=== PATIENT | female | born 1955 | race Caucasian/White ===

== ENCOUNTER 2016-07-12 22:49 | Observation (INO) | payer OTHER ==
--- NOTE | ~2016-07-12 | OP ---
Record Of Operation [facility] [address] [place]. [address] NAME: KATE GASTON : 57 STATUS : ADM Belkis PAT#: [id number] AGE: 61 ADM/REG DATE : 07/12/16 MR#: [id number] REPORT SERV DATE: 07/13/16 DICTATED BY: COBY BENOIT DATE: 07/13/16 REPORT STATUS : Draft TRANSCRIBED BY: MODL DATE: 07/13/16 DATE OF PROCEDURE: 07/12/2016 PREOPERATIVE DIAGNOSIS: Right hip dislocation. POSTOPERATIVE DIAGNOSIS: Right hip dislocation. PROCEDURES: Right closed reduction under anesthesia after total hip arthroplasty. COMPLICATIONS: None. SPECIMENS: None. FINDINGS: Located to hip by x-ray. CONDITION UPON LEAVING OR: Stable to recovery room with good distal pulses and a reduced hip, clinically equal leg lengths. INDICATIONS FOR PROCEDURE: Briefly, this is a pleasant, 61-year-old female, who is 3 months status post right total hip arthroplasty, suffered a same-level fall in her home. She was brought to the [facility] Emergency Room and then transferred to the [facility] Emergency Room. A failed closed reduction in the emergency room resulted in a consult to me. I had seen and evaluated her in the preoperative holding area of [facility] approximately 11 p.m. She was given the risks and benefits of closed reduction under anesthesia including not limited to , myocardial infarction, pulmonary embolism, stroke, deep venous thrombosis, damage to nerves, damage to vessels, damage to other soft tissues, painful scar, unsightly scar, hardware wear, hardware breakage, periprosthetic fracture, periprosthetic infection, possible further dislocation, possible need for further open procedure. I did discuss with her that tonight was a closed reduction attempt only and should there be a failure in this reduction attempts then it would require hospitalization, preoperative planning, and open procedure in the days to follow. They verbalized understanding of these risks and wished to proceed to the operating room. PROCEDURE IN DETAIL: After the patient was identified in the perioperative holding area, correct side and site identified and marked by me. She was taken to the operative suite, placed under general anesthesia. She was supine. We had transferred her to her floor bed with the radiographic plate beneath this and then a closed reduction maneuver was performed with her hip in internal rotation and traction. There was a palpable satisfying relocation clunk. Her leg lengths were then clinically equal, and her clinical range of motion was without impingement and had full range of motion. The x-ray machine was brought in, and AP pelvis x-ray was taken that confirmed a located right hip with normal radiographic lucency of the poly-liner. Satisfied that she was reduced, she was placed in abduction pillow and transferred to the PACU for recovery. She will be placed on the floor, and she will be followed up by Dr. Cruz, in the a.m. Record Of Operation [address] [address] NAME: KATE GASTON : 57 STATUS : ADM Belkis PAT#: [id number] AGE: 61 ADM/REG DATE : 07/12/16 MR#: [id number] REPORT SERV DATE: 07/13/16 DICTATED BY: COBY BENOIT DATE: 07/13/16 REPORT STATUS : Draft TRANSCRIBED BY: AVA DATE: 07/13/16 ARJUN/AVA Coby Benoit M.D. / [id number] CC: Coby Benoit M.D.
--- NOTE | ~2016-07-12 | HP ---
History And Physical [facility] [address]. [address] NAME: KATE GASTON : 57 STATUS : ADM Belkis PAT#: [id number] AGE: 61 ADM/REG DATE : 07/12/16 MR#: [id number] REPORT SERV DATE: 07/13/16 DICTATED BY: COBY BENOIT DATE: 07/13/16 REPORT STATUS : Draft TRANSCRIBED BY: MODL DATE: 07/13/16 DATE OF ADMISSION: 07/12/2016 CHIEF COMPLAINT: Right hip pain. HISTORY OF PRESENT ILLNESS: This is a pleasant 61-year-old female, who had undergone right total hip arthroplasty approximately three months prior. She suffered a dislocation while at home, was taken to the [facility] Emergency Room, subsequently transferred to [facility] Emergency Room, had undergone a failed closed reduction attempt in the emergency room and I was subsequently asked to evaluate and treat. She is met in the preoperative holding area at [facility] approximately 11 p.m. on the night of 07/12/2016. PAST MEDICAL HISTORY: Significant for morbid obesity and hypertension. PAST SURGICAL HISTORY: Include bilateral knee replacements and bilateral hip replacements. CURRENT MEDICATIONS: At home include morphine extended release twice a day 15 mg, trazodone, Flexeril, chlorthalidone, and propranolol. ALLERGIES: ARE TO PENICILLINS. SOCIAL HISTORY: She is accompanied by her and daughter. Denies alcohol, tobacco, or other illicits. REVIEW OF SYSTEMS: Negative for chest pain, shortness of breath, headache, nausea, vomiting, diarrhea, or any other constitutional symptoms for a full 14-point systematic review. PHYSICAL EXAMINATION: GENERAL: On exam, I see a lady, who is morbidly obese, supine on a stretcher in the preoperative holding area. She is AAO x3. Pleasant and cooperative with exam. Generally, in no apparent distress. HEENT: Pupils are equal, round, and reactive to light and accommodation. Extraocular muscles intact. CHEST: Clear to auscultation bilaterally. HEART: Regular rate and rhythm. ABDOMEN: Soft, nontender, and nondistended. Bowel sounds are present. EXTREMITIES: Bilateral upper extremities and left lower extremity show skin clean, dry, and intact. All surgical incisions are well healed. No warmth, no erythema. Good distal pulses and normal range of motion. About her right hip, she is guarded secondary to right groin pain. Her skin incision is clean, dry, and intact. She has good distal pulses. She has good sensation. She is able to flex and extend her toes with 5/5 strength. RADIOGRAPHS: Reveal a right hip dislocation. ASSESSMENT AND PLAN: A 61-year-old with morbid obesity and right hip dislocation. I History And Physical [address] [place]. [address] NAME: KATE GASTON : 57 STATUS : ADM Belkis PAT#: [id number] AGE: 61 ADM/REG DATE : 07/12/16 MR#: [id number] REPORT SERV DATE: 07/13/16 DICTATED BY: COBY BENOIT DATE: 07/13/16 REPORT STATUS : Draft TRANSCRIBED BY: AVA DATE: 07/13/16 discussed with her , her, as well as the daughter risks and benefits of closed reduction under anesthesia in the controlled environment of the operating room. The is noticeably upset at his entire experience throughout the day from the ambulance ride to the first ER to the second ER. We are able to come to an understanding. He does consent to have me evaluate and treat his and does consent to the closed reduction of this dislocation. ARJUN/AVA Coby Benoit M.D. / [id number] CC: Coby Benoit M.D.
[2016-07-12 22:05] LABS: CARBOXYHEMOGLOBIN 0.7 % (0-3); DEVICE NRB; HCO3 (ACTUAL BICARBONATE) 23.6 MEQ/L (23-27); HEMOBLOGIN CONTENT 11.8 G/DL (12-16); INSTRUMENT SERIAL # 8087; METHEMOGLOBIN 0.4 % (0-3); O2 CONTENT 16.4 VOL% (18-24); PCO2 (CO2 TENSION) 28 MMHG (35-45); PO2 (O2 TENSION) 115 MMHG (79-93); SAMPLE Arterial; pH 7.55 (7.37-7.43)
[~2016-07-12 22:49] MED LIST: ASA5GR PO; CO Q-1030 MG PO; COUMADIN4 MG PO; FISH OIL PO; FLEX PO; HYGROTON 25 MG25 MG PO; INDE60 PO; MSCONT15 PO; MSIMMR15 PO; MULTIVIT/MIN PO; PCET PO; TRAZ100 PO; VITAMIN D2000 UNIT PO; VITC500 PO; VITE PO
[2016-07-13] MEDS ORDERED: PCET PO (10:11)
== END 2016-07-13 16:48 | disposition home or self-care (01) ==
LOC: ER 22:49 → SDC/OF 23:53 → 3SO 07-13 00:23
PROVIDERS: Emergency Medicine; Orthopaedic Surgery
PROC: 0SS90ZZ Reposition Right Hip Joint, Open Approach (ICD-10-PCS; principal; 2016-07-12 23:00)
DX: T84.020A Dislocation of internal right hip prosthesis, initial encounter (principal); E66.01 Morbid (severe) obesity due to excess calories; M19.90 Unspecified osteoarthritis, unspecified site; G89.29 Other chronic pain; M54.2 Cervicalgia; M54.9 Dorsalgia, unspecified; J45.909 Unspecified asthma, uncomplicated; I10 Essential (primary) hypertension; Z96.653 Presence of artificial knee joint, bilateral; Z96.643 Presence of artificial hip joint, bilateral; Z88.0 Allergy status to penicillin; Z79.82 Long term (current) use of aspirin; Z79.899 Other long term (current) drug therapy; Z90.710 Acquired absence of both cervix and uterus; Z98.890 Other specified postprocedural states
CPT/HCPCS: 36600; 72170; 73501-RT; 73502-RT; 80053; 82805; 85025; 97161-GP; 99285; A9270-GY; C1729; G0378; J0330; J1170; J2250; J2370